=== PATIENT | female | born 1960 | race Caucasian/White ===

== ENCOUNTER 2017-03-22 12:09 | Emergency (ER) | payer BC ==
[~2017-03-22] VITALS: Wt 74.8 kg
--- NOTE | 2017-03-22 12:16 | Emergency Room Report ---
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 Clinical Suspician of Infection? Mental Status: Sepsis Risk: Have you (or family members/close friends) recently traveled outside the [place]? If Yes, where/when: Have you had exposure to infectious disease within the past month? TB? Other? Specify: Source patient, RN notes reviewed Exam Limitations no limitations Comment Pt developed some pain in her right side 2 days ago and took some tylenol and it went away. Today developed the same pain in right side and took tylenol but it did not help and the pain has gotten worse and is migrating from her right low back to the front of the abdomen. She denies any urinary tract symptoms, no fever but has had some vomiting but no diarrhea. Cardiac Chest Pain Chest pain indicative of cardiac No ALLERGIES Coded Allergies: No Known Allergies (03/22/17) History Medical History Surgical Hx Previous Surgery?Y Mastectomy Bilateral Mastectomy for Cancer, D&C, BTL , Lumpectomy prior to mastectomy Review of Systems All Other Systems Reviewed and Negative Constitutional see HPI Gastrointestinal see HPI Genitourinary see HPI. Musculoskeletal see HPI Physical Exam Vital Signs Vital Signs Date Time Temp Pulse Resp B/P Pulse O2 O2 Flow FiO2 Ox Delivery Rate 03/22 1259 74 14 149/80 96 03/22 1230 18 03/22 1214 97.5 77 18 151/91 98 General Appearance moderate distress, with pain in her right flank radiating to the RLQ Respiratory Status No: respiratory distress. Lung Sounds bilateral: normal breath sounds. Cardiovascular normal exam, regular rate/rhythm Gastrointestinal no guarding, no rebound, tenderness (in RLQ) Neurologic alert, sanipractic physician II-XII nml as tested, normal exam Medical Decision Making LABS/Meds/Orders Pt receiving controlled substance in ED? Yes Jordon was queried for this patient? Yes Reference #: [id number] Risks/benefits of using a controlled substance for treatment were not discussed w/pt Results/Orders Laboratory Tests 03/22/17 1218: Sodium 141, Potassium 3.7, Chloride 102, Carbon Dioxide 30, BUN 10, Creatinine 0.9, Estimated Creat Clear 82, Estimated GFR (MDRD) 65, Glucose 137 H, Calcium 9.4, Total Bilirubin 0.5, AST 21, ALT 26, Alkaline Phosphatase 109, Total Protein 8.0, Albumin 4.1, Globulin 3.9 H, Albumin/Globulin Ratio 1.1, Amylase 75, Lipase 104, WBC 8.8, RBC 5.10, Hgb 14.6, Hct 45.2, MCV 88.7, RDW 12.6, Plt Count 263, MPV 7.4, Gran % 73.1, Gran # 6.4, Lymphocytes % 21.2, Monocytes % 3.5 , Eosinophils % 1.6, Basophils % 0.7, Lymphocytes # 1.9, Monocytes # 0.3, Eosinophils # 0.1, Basophils # 0.1, PUBS MCHC 32.2, MCH 28.6 03/22/171214: Urine Color YELLOW, Urine Appearance SL CLOUDY, Urine pH 5.5, Ur Specific [place] >= 1.030, Urine Protein TRACE H, Urine Ketones TRACE H, Urine Blood 3+ H, Urine Nitrate NEGATIVE, Urine Bilirubin NEGATIVE, Urine Urobilinogen 0.2, Ur Leukocyte Esterase NEGATIVE, Urine RBC 50-100, Urine WBC OCC, Ur Squamous Epith Cells 3-5, Urine Bacteria 2+, Urine Glucose NEGATIVE Current Medication Orders Sig/Rebeca Start time Last Medication Dose Route Stop Time Status Admin Morphine Sulfate 4 MG ONCE ONE 03/22 1245 DC IV 03/22 1246 Ketorolac 30 MG ONCE ONE 03/22 1230 DC 03/22 Tromethamine IV 03/22 1231 1230 Ondansetron HCl 4 MG ONCE ONE 03/22 1230 DC 03/22 IV 03/22 1231 1229 Sodium Chloride 1,000 ML .STK-MED ONE 03/22 1217 DC IV Ketorolac 0 .STK-MED ONE 03/22 121 DC Tromethamine .ROUTE Ondansetron HCl 0 .STK-MED ONE 03/22 121 DC .ROUTE Sodium Chloride 10 ML PRN PRN 03/22 1215 AC IV 03/23 1214 Orders Procedure Date/time Status DIET-NOTHING BY MOUTH 03/22 D Active CULTURE, URINE 03/[address] ABD/PELVIS REQ 03/22 1214 Complete IV SALINE LOCK 03/22 1214 Active URINALYSIS/COMPLETE 03/22 121 Complete LIPASE 03/224 Complete CBC WITH AUTO DIFF 03/22 1214 Complete CHEM 12 PROFILE 03/22 1214 Complete AMYLASE 03/22 1214 Complete XRAY/CT/US XRAY/CT/US CT abdomen, pelvis CT interpretation by discussed w/radiologist Time results known: 1329 CT Results 5 mm stone at Ureteropelvic junction with moderate ureterohydronephrosis and a small 2 mm stone inside the right kidney Departure Departure Time of Disposition 1330 Disposition DC Home or Self Care(routine) Clinical Impression Primary Impression: Ureterolithiasis Condition STABLE Referrals Andrew ALVES,Nehemiah Miranda Patient Instructions DI for Kidney Stones, Extracorporeal Shock Wave Lithotripsy , Kidney Stones (Alternative Therapy), Kidney Stones -- Adult Additional Instructions Use medicines as directed and followup with PCP in 3 to 4 days to get referral to Urologist if you are not able to pass the stone. Return to the ED for any worsening symptoms for re-evaluation Discharge Counseling Counseled pt/family regarding diagnosis, test results, medications/RX, home care, follow up needs Prescriptions Current Visit Scripts OXYCODONE HCL (Oxycodone) 5 MG NG Q4HP PRN pain #18 TAB ED Critical Care Critical Care No If Critical Care minutes are documented, the time involved in the performance of seperately reportable procedures was not counted toward critical care time documented. I directly delivered medical care to this critically ill and/or injured patient. Timely evaluation and treatment was necessary to address the significant organ system(s) dysfunction present in this patient. at 1333
[2017-03-22 12:28] LABS: URINE BLOOD 3+ (NEG)
[2017-03-22 12:32] LABS: HEMOGLOBIN 14.6 g/dL (12.2-16.2); LYMPH # 1.9 K/mm3 (0.7-4.5); LYMPH % 21.2 % (10-50.0)
[2017-03-22 12:43] LABS: URINE BILIRUBIN - DIPSTICK NEGATIVE (NEG)
--- NOTE | 2017-03-22 13:27 | RADIOLOGY REPORT PS360 ---
CT ABD PELVIS W/O CONTRAST CLINICAL INDICATION: Right flank pain RT SIDED ABDOMEN PAIN ORDERING PHYSICIAN: Lux Marks MD PATIENT AGE: 57 years COMPARISON: None TECHNIQUE: Axial images obtained with sagittal and coronal reformats. PROCEDURE: Oral Contrast: None IV Contrast: None . FINDINGS: Lower thorax: No acute finding ABDOMEN: Liver: No masses or biliary dilatation. Gallbladder: Nondistended. No radio opaque stones. Pancreas: No masses or peripancreatic fluid collections. Spleen: Unremarkable. Adrenals: Unremarkable Kidneys/ureters: There are punctate bilateral renal calculi measuring up to 2 mm in the mid polar region on the right and 1 to 2 mm in the mid polar region on the left. There is mild right hydronephrosis secondary to a right ureteropelvic junction stone which measures 5 mm. Stomach bowel: Nondistended. No obvious mass or thickening. Sigmoid diverticulosis. No evidence of diverticulitis. Appendix: No evidence of appendicitis. PELVIS: Reproductive: Unremarkable Bladder: Nondistended. No obvious stones or masses. ABDOMEN & PELVIS: Peritoneum: No abnormal fluid collections. No obvious inflammatory changes. No free air. Lymph nodes: No enlarged lymph nodes apparent. Vasculature: No evidence of abdominal aortic aneurysm. No retroperitoneal hemorrhage evident. Bones: Grade 1 spondylitic spondylolisthesis L5-S1 IMPRESSION: 1. 5 mm right ureterovesical junction stone with mild right hydronephrosis. 2. Punctate bilateral renal calculi
[2017-03-22] MEDS ORDERED: Oxycodone5 MG NG (13:33)
[2017-03-22 14:18] VITALS: BP 149/80
--- OUTSIDE RECORDS SUMMARY | 2017-03-22 17:26 | External Medical Summary Rpt | CCD ---
Author Author [employer] Organization [employer] Address Unknown Phone Unavailable Purpose Continuity of Care Document - through 2016
--- OUTSIDE RECORDS SUMMARY | 2017-03-22 17:26 | External Medical Summary Rpt | CCD ---
Demographics Preferred Language Qatari Marital Status Unknown Islam Affiliation Unknown Race Unknown Ethnic Group Unknown Author Author , JARRELL VIEYRA Address Unknown Phone Immunization No patient found.
--- OUTSIDE RECORDS SUMMARY | 2017-03-22 17:26 | External Medical Summary Rpt | CCD ---
Demographics Preferred Language Moz[place] Marital Status Unknown Jew Affiliation Unknown Race Unknown Ethnic Group Unknown Author Author , JARRELL VIEYRA Address Unknown Phone Immunization No patient found.
== END 2017-03-22 14:18 | disposition home or self-care (01) ==
LOC: ER 12:09
PROVIDERS: General Practice
DX: N20.2 Calculus of kidney with calculus of ureter (principal)
CPT/HCPCS: J2405